=== PATIENT | female | born 2000 | race African-American/Black ===

== ENCOUNTER 2023-05-09 00:46 | Emergency (ER) | payer OTHER ==
[~2023-05-09] VITALS: Ht 162.6 cm; Wt 62.0 kg
[2023-05-09 00:54] VITALS: BP 112/67; PULSE 84; RESP 16; TEMP 98; O2SAT 100
[2023-05-09 01:45] LABS: CLARITY URINE CLEAR (CLEAR); COLOR URINE YELLOW (YELLOW); GLUCOSE URINE NEGATIVE (NEGATIVE); KETONES URINE NEGATIVE (NEGATIVE); LEUKOCYTE ESTERASE URINE NEGATIVE (NEGATIVE); NITRITE URINE NEGATIVE (NEGATIVE); OCCULT BLOOD URINE 1+ (NEGATIVE); PROTEIN URINE NEGATIVE (NEGATIVE)
[2023-05-09 01:48] LABS: BACTERIA URINE 1+; YEAST URINE NONE SEEN
[2023-05-09 05:28] LABS: SQUAMOUS EPITHELIAL CELL URINE FEW /lpf (RARE/1+)
[2023-05-09 05:30] LABS: RBC URINE 0-2 /hpf (0-2); WBC URINE 0-2 /hpf (0-2)
== END 2023-05-09 03:08 | disposition left against medical advice (07) ==
LOC: ER 00:46
DX: N93.9 Abnormal uterine and vaginal bleeding, unspecified (principal); Z53.21 Procedure and treatment not carried out due to patient leaving prior to being seen by health care provider
CPT/HCPCS: 76801; 81003; 81025; 99281